=== PATIENT | male | born 1955 | race Caucasian/White ===

== ENCOUNTER 2020-02-24 19:45 | Inpatient (IN) | payer OTHER ==
[~2020-02-24] VITALS: Ht 182.9 cm; Wt 97.5 kg
[2020-02-24] MEDS ORDERED: COZAAR50 MG (19:54)
[2020-02-24] MEDS ORDERED: TOPROL XL50 M1 (19:54)
[2020-02-24] MEDS ORDERED: LIPITOR40 MG (19:55)
[2020-02-24] MEDS ORDERED: FENOFIBRATE150 MG (19:55)
[2020-02-29] MEDS ORDERED: DERMACINRX5000 UNIT PO (13:07)
[2020-02-29] MEDS ORDERED: VITAMIN C500 M6 PO (13:07)
[2020-02-29] MEDS ORDERED: ZINC GLUCONATE100 MG PO (13:08)
[2020-02-29] MEDS ORDERED: DECADRON6 MG PO (13:08)
[2020-02-29] MEDS ORDERED: ELIQUIS5 MG PO (13:09)
[2020-02-29] MEDS ORDERED: METOPROLOL TART50 MG PO (13:09)
== END 2020-02-29 16:16 | disposition home or self-care (01) | DRG 178 ==
LOC: ER 19:45 → MEDJ 02-25 09:43 → ICU-2 02-25 09:43 → MEDJ 02-26 17:05
PROVIDERS: ADMIT Internal Medicine; ATTEND Internal Medicine
PROC: 8E0ZXY6 Isolation (ICD-10-PCS; principal; 2020-02-25)
PROC: 4A033R1 Measurement of Arterial Saturation, Peripheral, Percutaneous Approach (ICD-10-PCS; 2020-02-25)
PROC: BB24ZZZ Computerized Tomography (CT Scan) of Bilateral Lungs (ICD-10-PCS; 2020-02-25)
PROC: B246ZZZ Ultrasonography of Right and Left Heart (ICD-10-PCS; 2020-02-25)
PROC: B345ZZZ Ultrasonography of Bilateral Common Carotid Arteries (ICD-10-PCS; 2020-02-25)
PROC: B348ZZZ Ultrasonography of Bilateral Internal Carotid Arteries (ICD-10-PCS; 2020-02-25)
PROC: 4A12X4Z Monitoring of Cardiac Electrical Activity, External Approach (ICD-10-PCS; 2020-02-26)
DX: U07.1 COVID-19 (principal); I48.92 Unspecified atrial flutter; I10 Essential (primary) hypertension; E78.00 Pure hypercholesterolemia, unspecified